=== PATIENT | male | born 1990 | race Hispanic/Latino ===

== ENCOUNTER 2017-08-23 11:18 | Emergency (ER) | payer SELFPAY ==
[2017-08-23] MEDS ORDERED: ONDANSETRON ODT 4 MG TAB ONE (11:53)
== END 2017-08-23 13:34 | disposition home or self-care (01) ==
LOC: EDH 11:18
DX: R11.2 Nausea with vomiting, unspecified (principal); R19.7 Diarrhea, unspecified; M79.1 Myalgia; Z72.0 Tobacco use
CPT/HCPCS: 87804